=== PATIENT | female | born 1935 | race Caucasian/White ===

== ENCOUNTER 2016-09-19 15:16 | Emergency (ER) | payer MEDICARE, MEDICAID ==
[~2016-09-19 15:16] MED LIST: BENT20TA PO; BUSP5 PO; CALC600T12 PO; CITA20TA4 PO; D31000TA PO; DABI150 PO; LOTR10CA PO; METHO500 PO; MULT-65 PO; PRAV20 PO
[2016-09-19 15:23] VITALS: BP 106/75; PULSE 103; RESP 18; TEMP 98.8; O2SAT 96
[2016-09-19] MEDS ORDERED: BUSP1TAB PO (15:48)
[2016-09-19] MEDS ORDERED: CALC600T25 PO (15:48)
[2016-09-19] MEDS ORDERED: CITA20TA4 PO (15:48)
[2016-09-19] MEDS ORDERED: PRAV40TA2 PO (15:48)
[2016-09-19] MEDS ORDERED: MULT1TAB84 PO (15:48)
[2016-09-19] MEDS ORDERED: PRAD150C PO (15:48)
[2016-09-19] MEDS ORDERED: LOTR5CAP3 PO (15:48)
[2016-09-19] MEDS ORDERED: BENT20TA PO (15:48)
[2016-09-19] MEDS ORDERED: VITA10003 PO (15:48)
--- NOTE | 2016-09-19 17:01 | PD ---
HPI Chief Complaint: Cold / Flu Symptoms Time Seen by Provider: 16:52 Travel History International Travel<30 days: No Contact w/Intl Traveler<30days: No Traveled to known affect area: No History of Present Illness HPI 81-year-old female complains of coughing congestion. Patient states that the symptoms started about 5 days ago. Patient states the cough is productive with 1 episode of blood-tinged sputum yesterday. Patient denies any headache. Patient denies any chest pain or shortness of breath. Patient has intermittent recurrent abdominal pain with this is not new. Patient denies any dysuria or frequency. Patient denies any fever chills. Patient denies any nausea vomiting diarrhea. Patient has history of atrial fibrillation, hypertension, anxiety, dementia, dyslipidemia, status post CVA, ovarian cancer. Patient's on Pradaxa. PFSH Past Medical History Arthritis: No Atrial Fibrillation: Yes Anxiety: Yes Depression: No Heart Rhythm Problems: No Cancer: Yes (OVARIAN) Cardiovascular Problems: Yes (a-fib, htn) High Cholesterol: Yes Chemotherapy: No Chest Pain: No Congestive Heart Failure: No COPD: No Cerebrovascular Accident: Yes Dementia: Yes Diabetes: No Diminished Hearing: No Endocrine: No Glaucoma: No Headaches: Yes Hepatitis: No Hiatal Hernia: No Hypertension: Yes Immune Disorder: No Kidney Stones: No Musculoskeletal: No Neurologic: Yes Psychiatric: No Respiratory: No Immunizations Current: Yes Migraines: No Radiation Therapy: No Renal Failure: No Seizures: Yes Sickle Cell Disease: No Sleep Apnea: No Thyroid Disease: No Tetanus Vaccination: Unknown Influenza Vaccination: Yes ?: Not Menopausal: Yes Past Surgical History Abdominal Surgery: Yes (G TUBE OUT) Appendectomy: Yes Arteriovenous Shunt: No Ear Surgery: No Eye Surgery: Yes Gynecologic Surgery: Yes (HYSTERECTOMY) Hysterectomy: Yes Insulin Pump: No Joint Replacement: No Oral Surgery: No Pacemaker: No Other Surgery: Yes Social History Alcohol Use: No Tobacco Use: No (QUIT 07/2013) Substance Use: No Allergies-Medications (Allergen,Severity, Reaction): Coded Allergies: Ativan (Verified Allergy, Severe, increased confusion, 09/19/16) Xanax (Verified Allergy, Severe, increase confusion, 09/19/16) Aspirin (Verified Adverse Reaction, Severe, SEVERE NAUSEA, CRAMPING , ENTERIC COATED [place]., 09/19/16) Aricept (Verified Adverse Reaction, Unknown, loose stools-dumping symdrom , 09/19/16) Reported Meds & Prescriptions Reported Meds & Active Scripts Active Reported Multivitamin Adults (Multiple Vitamins W/ Minerals) 1 Tab 1 Tab PO DAILY Vitamin D-3 (Cholecalciferol) 1,000 Unit Tab 1,000 Units PO DAILY Calcium (Calcium Carbonate) 600 Mg Tab 1 Tab PO BID Pravastatin 40 Mg Tab 40 Mg PO DAILY Buspirone (Buspirone HCl) 7.5 Mg Tab 7.5 Mg PO BID Pradaxa (Dabigatran) 150 Mg Cap 150 Mg PO BID Bentyl (Dicyclomine HCl) 20 Mg Tab 20 Mg PO HS Lotrel (Amlodipine-Benazepril) 5-20 Mg Cap 1 Cap PO DAILY Citalopram (Citalopram Hydrobromide) 20 Mg Tab 20 Mg PO DAILY Review of Systems General / Constitutional: No: Fever Eyes: No: Visual changes HENT: No: Headaches Cardiovascular: No: Chest Pain or Discomfort Respiratory: Positive: Cough, Hemoptysis, No: Shortness of Breath Gastrointestinal: No: Abdominal Pain Genitourinary: No: Dysuria Musculoskeletal: No: Pain Skin: No Rash Neurologic: No: Weakness Psychiatric: No: Depression Endocrine: No: Polydipsia Hematologic/Lymphatic: No: Easy Bruising Physical Exam Narrative GENERAL: Well-nourished, well-developed patient. SKIN: Warm and dry. HEAD: Normocephalic. EYES: No scleral icterus. No injection or drainage. NECK: Supple, trachea midline. No JVD or lymphadenopathy. CARDIOVASCULAR: Regular rate and rhythm without murmurs, gallops, or rubs. RESPIRATORY: Breath sounds equal bilaterally. No accessory muscle use. Patient has few rhonchi at the bases bilaterally. GASTROINTESTINAL: Abdomen soft, non-tender, nondistended. MUSCULOSKELETAL: No cyanosis, or edema. BACK: Nontender without obvious deformity. No CVA tenderness. Neurologic exam normal. Data Data Last Documented VS Vital Signs Date Time Temp Pulse Resp B/P Pulse Ox O2 Delivery O2 Flow Rate FiO2 09/19/16 17:04 97 Room Air 09/19/16 15:23 98.8 103 18 106/75 Orders Electrocardiogram (09/19/16 16:56) Complete Blood Count With Diff (09/19/16 16:56) Comprehensive Metabolic Panel (09/19/16 16:56) Prothrombin Time / Inr (Pt) (09/19/16 16:56) Act Partial Throm Time (Ptt) (09/19/16 16:56) Urinalysis - C+S If Indicated (09/19/16 16:56) Influenzae A/B Antigen (09/19/16 16:56) Chest, Single Ap (09/19/16 16:56) Iv Access Insert/Monitor (09/19/16 16:56) Ecg Monitoring (09/19/16 16:56) Oximetry (09/19/16 16:56) Labs Laboratory Tests Test 09/19/16 16:15 White Blood Count 13.0 TH/MM3 Red Blood Count 4.81 MIL/MM3 Hemoglobin 13.5 GM/DL Hematocrit 40.3 % Mean Corpuscular Volume 83.8 FL Mean Corpuscular Hemoglobin 28.1 PG Mean Corpuscular Hemoglobin 33.5 % Concent Red Cell Distribution Width 15.1 % Platelet Count 309 TH/MM3 Mean Platelet Volume 9.8 FL Neutrophils (%) (Auto) 83.4 % Lymphocytes (%) (Auto) 10.1 % Monocytes (%) (Auto) 4.9 % Eosinophils (%) (Auto) 1.2 % Basophils (%) (Auto) 0.4 % Neutrophils # (Auto) 10.8 TH/MM3 Lymphocytes # (Auto) 1.3 TH/MM3 Monocytes # (Auto) 0.6 TH/MM3 Eosinophils # (Auto) 0.2 TH/MM3 Basophils # (Auto) 0.1 TH/MM3 CBC Comment DIFF FINAL Differential Comment Prothrombin Time 13.4 SEC Prothromb Time International 1.2 RATIO Ratio Activated Partial 42.1 SEC Thromboplast Time Sodium Level 142 MEQ/L Potassium Level 4.7 MEQ/L Chloride Level 105 MEQ/L Carbon Dioxide Level 29.9 MEQ/L Anion Gap 7 MEQ/L Blood Urea Nitrogen 22 MG/DL Creatinine 1.00 MG/DL Estimat Glomerular Filtration 53 ML/MIN Rate Random Glucose 114 MG/DL Calcium Level 8.6 MG/DL Total Bilirubin 0.3 MG/DL Aspartate Amino Transf 15 U/L (AST/SGOT) Alanine Aminotransferase 15 U/L (ALT/SGPT) Alkaline Phosphatase 92 U/L Total Protein 6.7 GM/DL Albumin 2.8 GM/DL MDM Medical Decision Making Medical Screen Exam Complete: Yes Emergency Medical Condition: Yes Interpretation(s) Last Impressions Chest X-Ray 09/19/16 5896 Signed Impressions: Service Date/Time: Monday, September 19, 2016 17:00 - CONCLUSION: No acute disease. Jovan Corral MD 1755 PM. CBC WBC 13.0. 83 neutrophil. CMP within normal limit. BUN 22. Influenza AB antigen negative. Differential Diagnosis Differential diagnosis including URI, bronchitis, pneumonia, PE, pneumothorax. Narrative Course 81-year-old female with productive cough. Diagnosis Primary Impression: Bronchitis Patient Instructions: General Instructions Additional Instructions: Take medications as directed. Tylenol for fever. Follow-up with personal physician. Return if persistent problem or worse. Med/Other Pt SpecificInfo: Prescription(s) given Scripts Azithromycin (Zithromax Z-Murphy)250 Mg [id number] Mg PO DIRECTED #1 DSPK 500 MG (2 tabs) day 1, then 1 tab days 2-5. Prov:Alex Wilson MD 09/19/16 Disposition: 01 DISCHARGE HOME Condition: Stable Alex Wilson MD Sep 19, 2016 17:01
[2016-09-19 17:04] VITALS: O2SAT 97
--- NOTE | 2016-09-19 17:12 | RADHPO ---
EXAM DATE/TIME: 09/19/2016 17:00 [facility] COMPARISON: CHEST SINGLE AP, August 18, 2014, 12:42. INDICATIONS : Cough. MEDICAL HISTORY : Seizures. Dementia. Carcinoma, tongue.Atrial fibrillation, ovarian cancer, cerebrovascular accident. SURGICAL HISTORY : Hysterectomy. Appendectomy. ENCOUNTER: Initial ACUITY: 1 day PAIN SCORE: 0/10 LOCATION: Bilateral chest FINDINGS: A single view of the chest demonstrates the lungs to be symmetrically aerated without evidence of mas s, infiltrate or effusion. The cardiomediastinal contours are unremarkable. Osseous structures are intact with mild scoliosis of the thoracic or lumbar spine to the right.. CONCLUSION: No acute disease. Jovan Corral MD on September 19, 2016 at 17:10 Board Certified Radiologist. This report was verified electronically.
[2016-09-19 17:18] LABS: AUTOMATED NEUTROPHIL # 10.8 TH/MM3 (1.8-7.7); BASOPHIL # 0.1 TH/MM3 (0-0.2); BASOPHIL % 0.4 % (0.0-2.0); EOSINOPHIL # 0.2 TH/MM3 (0-0.4); EOSINOPHIL % 1.2 % (0.0-4.0); HEMATOCRIT 40.3 % (35.0-46.0); HEMO FLAGS DIFF FINAL; LYMPH % 10.1 % (9.0-44.0); LYMPHOCYTE # 1.3 TH/MM3 (1.0-4.8); MEAN CELL VOLUME 83.8 FL (80.0-100.0); MEAN CORPUSCULAR HEMOGLOBIN 28.1 PG (27.0-34.0); MEAN CORPUSCULAR HGB CONC 33.5 % (32.0-36.0); MONO % 4.9 % (0.0-8.0); NEUT % 83.4 % (16.0-70.0); PLATELET COUNT 309 TH/MM3 (150-450); RED BLOOD COUNT 4.81 MIL/MM3 (4.00-5.30); RED CELL DISTRIBUTION WIDTH 15.1 % (11.6-17.2)
[2016-09-19 17:26] LABS: CHLORIDE 105 MEQ/L (98-107); POTASSIUM 4.7 MEQ/L (3.5-5.1); SODIUM (NA) 142 MEQ/L (136-145)
[2016-09-19 17:30] LABS: ANION GAP 7 MEQ/L (5-15); BICARBONATE 29.9 MEQ/L (21.0-32.0); BLOOD UREA NITROGEN 22 MG/DL (7-18)
[2016-09-19 17:32] LABS: APTT (PATIENT) 42.1 SEC (24.3-30.1); INTERNATIONAL NORMALIZED RATIO 1.2 RATIO; PROTHROMBIN TIME - PATIENT 13.4 SEC (9.8-11.6)
[2016-09-19 17:33] LABS: ALT (GPT) 15 U/L (10-53); AST (GOT) 15 U/L (15-37); GLOMERULAR FILTRATION RATE 53 ML/MIN (>89)
[2016-09-19 17:34] LABS: TOTAL BILIRUBIN ADULT 0.3 MG/DL (0.2-1.0)
[2016-09-19 17:36] LABS: ALKALINE PHOSPHATASE 92 U/L (45-117)
[2016-09-19] MEDS ORDERED: ZITHTAB PO (17:58)
[2016-09-19] MEDS ORDERED: AZITHROMYCIN 250 MG TAB PO ONE (18:00)
[2016-09-19 18:18] VITALS: BP 105/69
--- NOTE | 2016-09-19 22:44 | EKG ---
Date Performed: 09/19/2016 Time Performed: 17:07:02 PTAGE: 81 years EKG: Atrial fibrillation with rapid ventricular response with PVC(s) Anterolateral ST-T changes are nonspecific Low QRS voltages in precordial leads Abnormal ECG PREVIOUS TRACING : 08/13/2014 13.41 Compared to prior tracing no significant change DOCTOR: Yogesh Pérez Interpretating Date/Time 09/19/2016 22:42:37
== END 2016-09-19 18:24 | disposition home or self-care (01) ==
LOC: PHED 15:16
DX: J40 Bronchitis, not specified as acute or chronic (principal); Z85.43 Personal history of malignant neoplasm of ovary; I10 Essential (primary) hypertension; F03.90 Unspecified dementia, unspecified severity, without behavioral disturbance, psychotic disturbance, mood disturbance, and anxiety; I48.91 Unspecified atrial fibrillation; E78.00 Pure hypercholesterolemia, unspecified; Z86.73 Personal history of transient ischemic attack (TIA), and cerebral infarction without residual deficits
CPT/HCPCS: 71010; 80053; 85025; 85610; 85730; 87804; 93005